=== PATIENT | female | born 2000 | race Caucasian/White ===

== ENCOUNTER 2018-01-19 22:44 | Day surgery (SDC) | payer BC, OTHER ==
[2018-01-19] MEDS ORDERED: Sodium Chloride 0.9% 1,000 ML IV ONE (22:59)
[2018-01-19] MEDS ORDERED: LORazepam 2 MG/ML Syringe IVPUSH ONE (23:05)
[2018-01-19] MEDS ORDERED: Ondansetron 4 MG/2 ML SDV IV ONE (23:05)
--- NOTE | 2018-01-19 23:06 | EDM.PDOC ---
"ED HPI GENERAL MEDICAL PROBLEM - General Chief Complaint: Abdominal Pain Stated Complaint: SEVERE CRAMPING AND CHEST PAIN Time Seen by Provider: 01/19/18 22:50 Source of Information: Reports: Patient, Family History Limitations: Reports: No Limitations - History of Present Illness INITIAL COMMENTS - FREE TEXT/NARRATIVE: Karie with mother report of vomiting, abdominal pain. Pain started this am then ate at [employer], vomiting after. Mom reports severe abdominal pain usual with menses. Initially unsure of LMP then later determined around 12/30. Ibuprofen and pamprin earlier this inderjit. Patient shaking and hyperventilating on arrival. mom noted that roommates said she kept passing out this inderjit. Patient reporting pain epigastric to lower. Middle Abdominal Pain Score (Numeric/FACES): 10 - Related Data Allergies Allergy/AdvReac Type Severity Reaction Status Date / Time No Known Allergies Allergy Verified 01/19/18 23:00 ED ROS GENERAL - Review of Systems Review Of Systems: ROS reveals no pertinent complaints other than HPI. ED EXAM, GI/ABD - Physical Exam Exam: See Below Exam Limited By: No Limitations General Appearance: Alert, Anxious Ears: Normal External Exam Throat/Mouth: Normal Lips Head: Atraumatic, Normocephalic Neck: Normal Inspection, Full Range of Motion Respiratory/Chest: No Respiratory Distress, Lungs Clear, Normal Breath Sounds Cardiovascular: Normal Peripheral Pulses, Regular Rate, Rhythm GI/Abdominal Exam: Normal Bowel Sounds, Soft, No Distention, Guarding, Tender. No: Distended Back Exam: Normal Inspection Extremities: Normal Inspection Neurological: Alert, Oriented Psychiatric: Anxious (hyperventilating, tremors, carppedal spasms) Skin Exam: Warm, Dry, Intact, Pallor Course - Vital Signs Last Recorded V/S: Last Vital Signs Temp 99.0 F 01/20/18 01:06 Pulse 77 01/20/18 01:06 Resp 18 01/20/18 01:06 BP 130/76 01/20/18 01:06 Pulse Ox 100 01/20/18 01:06 - Orders/Labs/Meds Orders: Active Orders 24 hr Category Date Time Status Verify Patient Consent Obtain [RC] ASDIRECTED Care 01/20/18 00:51 Active DRUG SCREEN URINE BIORAD [URCHEM] Stat Lab 01/20/18 00:19 Ordered UA W/MICROSCOPIC [URIN] Stat Lab 01/20/18 00:19 Ordered Sodium Chloride 0.9% [Normal Saline] 1,000 ml Med 01/20/18 01:00 Active IV ASDIRECTED Resuscitation Status Routine Resus Stat 01/20/18 00:50 Ordered Medication Orders Sodium Chloride (Normal Saline) 1,000 mls @ 125 mls/hr IV ASDIRECTED MILAGRO Last Admin: 01/20/18 01:15 Dose: 125 mls/hr Labs: Laboratory Tests 01/19/18 01/19/18 01/19/18 Range/Units 22:53 22:53 22:53 WBC 19.1 H (5.0-10.0) 10^3/uL RBC 4.31 (4.2-5.4) 10^6/uL Hgb 10.3 L (12.0-16.0) g/dL Hct 33.4 L (37.0-47.0) % MCV 77.5 L (80-100) fL MCH 23.9 L (27.0-34.0) pg MCHC 30.8 L (33.0-35.0) g/dL Plt Count 268 (150-450) 10^3/uL Neut % (Auto) 89.3 H (42.2-75.2) % Lymph % (Auto) 6.9 L (20.5-50.1) % Dyer % (Auto) 3.7 (2-8) % Eos % (Auto) 0.0 L (1.0-3.0) % Baso % (Auto) 0.1 (0.0-1.0) % Sodium 137 (135-145) mmol/L Potassium 3.6 (3.6-5.0) mmol/L Chloride 106 (101-111) mmol/L Carbon Dioxide 20.0 L (21.0-31.0) mmol/L Anion Gap 14.6 BUN 10 (7-18) mg/dL Creatinine 0.8 (0.6-1.3) mg/dL Est Cr Clr Drug Dosing 105.89 mL/min Estimated GFR (MDRD) > 60 BUN/Creatinine Ratio 12.50 Glucose 162 H (74-105) mg/dL POC Glucose (70-105) mg/dl Calcium 8.5 (8.4-10.2) mg/dl Total Bilirubin 0.5 (0.2-1.0) mg/dL AST 28 (10-42) IU/L ALT 13 (10-60) IU/L Alkaline Phosphatase 30 L (42-121) IU/L Total Protein 7.7 (6.7-8.2) g/dl Albumin 4.0 (3.2-5.5) g/dl Globulin 3.7 Albumin/Globulin Ratio 1.08 HCG, Qual Negative Urine Color (YELLOW) Urine Appearance (CLEAR) Urine pH (5.0-9.0) Ur Specific [place] (1.005-1.030) Urine Protein (NEGATIVE) Urine Glucose (UA) (NEGATIVE) Urine Ketones (NEGATIVE) Urine Occult Blood (NEGATIVE) Urine Nitrite (NEGATIVE) Urine Bilirubin (NEGATIVE) Urine Urobilinogen (0.2-1.0) mg/dL Ur Leukocyte Esterase (NEGATIVE) Urine RBC /HPF Urine WBC (0-5/HPF) /HPF Ur Epithelial Cells /HPF Amorphous Sediment (0/HPF) /HPF Urine Bacteria (0-FEW/HPF) /HPF Urine Mucus /LPF Urine Opiates Screen (NEGATIVE) Ur Oxycodone Screen (NEGATIVE) Urine Methadone Screen (NEGATIVE) Ur Barbiturates Screen (NEGATIVE) U Tricyclic Antidepress (NEGATIVE) Ur Phencyclidine Scrn (NEGATIVE) Ur Amphetamine Screen (NEGATIVE) U Methamphetamines Scrn (NEGATIVE) Urine MDMA Screen (NEGATIVE) U Benzodiazepines Scrn (NEGATIVE) Urine Cocaine Screen (NEGATIVE) U Marijuana (THC) Screen (NEGATIVE) 01/19/18 01/20/18 01/20/18 Range/Units 22:58 00:19 00:19 WBC (5.0-10.0) 10^3/uL RBC (4.2-5.4) 10^6/uL Hgb (12.0-16.0) g/dL Hct (37.0-47.0) % MCV (80-100) fL MCH (27.0-34.0) pg MCHC (33.0-35.0) g/dL Plt Count (150-450) 10^3/uL Neut % (Auto) (42.2-75.2) % Lymph % (Auto) (20.5-50.1) % Dyer % (Auto) (2-8) % Eos % (Auto) (1.0-3.0) % Baso % (Auto) (0.0-1.0) % Sodium (135-145) mmol/L Potassium (3.6-5.0) mmol/L Chloride (101-111) mmol/L Carbon Dioxide (21.0-31.0) mmol/L Anion Gap BUN (7-18) mg/dL Creatinine (0.6-1.3) mg/dL Est Cr Clr Drug Dosing mL/min Estimated GFR (MDRD) BUN/Creatinine Ratio Glucose (74-105) mg/dL POC Glucose 169 H (70-105) mg/dl Calcium (8.4-10.2) mg/dl Total Bilirubin (0.2-1.0) mg/dL AST (10-42) IU/L ALT (10-60) IU/L Alkaline Phosphatase (42-121) IU/L Total Protein (6.7-8.2) g/dl Albumin (3.2-5.5) g/dl Globulin Albumin/Globulin Ratio HCG, Qual Urine Color Yellow (YELLOW) Urine Appearance Slightly cloudy (CLEAR) Urine pH 6.5 (5.0-9.0) Ur Specific [place] 1.025 (1.005-1.030) Urine Protein Negative (NEGATIVE) Urine Glucose (UA) 100 H (NEGATIVE) Urine Ketones 40 H (NEGATIVE) Urine Occult Blood Negative (NEGATIVE) Urine Nitrite Negative (NEGATIVE) Urine Bilirubin Negative (NEGATIVE) Urine Urobilinogen 0.2 (0.2-1.0) mg/dL Ur Leukocyte Esterase Negative (NEGATIVE) Urine RBC 0-5 /HPF Urine WBC 5-10 H (0-5/HPF) /HPF Ur Epithelial Cells Few /HPF Amorphous Sediment Few (0/HPF) /HPF Urine Bacteria Few (0-FEW/HPF) /HPF Urine Mucus Rare /LPF Urine Opiates Screen Negative (NEGATIVE) Ur Oxycodone Screen Negative (NEGATIVE) Urine Methadone Screen Negative (NEGATIVE) Ur Barbiturates Screen Negative (NEGATIVE) U Tricyclic Antidepress Negative (NEGATIVE) Ur Phencyclidine Scrn Negative (NEGATIVE) Ur Amphetamine Screen Negative (NEGATIVE) U Methamphetamines Scrn Negative (NEGATIVE) Urine MDMA Screen Negative (NEGATIVE) U Benzodiazepines Scrn Negative (NEGATIVE) Urine Cocaine Screen Negative (NEGATIVE) U Marijuana (THC) Screen Negative (NEGATIVE) Meds: Medications Generic Name Dose Route Start Last Admin Trade Name Freq PRN Reason Stop Dose Admin Sodium Chloride 1,000 mls @ 125 mls/hr 01/20/18 01:00 01/20/18 01:15 Normal Saline IV 125 mls/hr ASDIRECTED MILAGRO Administration Discontinued Medications Generic Name Dose Route Start Last Admin Trade Name Tamiko PRN Reason Stop Dose Admin Fentanyl 25 mcg 01/19/18 23:12 01/19/18 23:16 Sublimaze IVPUSH 01/19/18 23:13 25 mcg ONETIME ONE Administration Sodium Chloride 1,000 mls @ 999 mls/hr 01/19/18 22:59 01/19/18 23:01 Normal Saline IV 01/19/18 23:59 999 mls/hr .BOLUS ONE Administration Iopamidol 75 ml 01/19/18 23:43 01/19/18 23:55 Isovue-300 (61%) IVPUSH 01/19/18 23:44 75 ml ONETIME ONE Administration Lorazepam 1 mg 01/19/18 23:05 01/19/18 23:12 Ativan IVPUSH 01/19/18 23:06 1 mg ONETIME ONE Administration Morphine Sulfate 2 mg 01/20/18 00:54 Morphine IVPUSH 01/20/18 04:00 Q2H PRN Abdominal Pain Ondansetron HCl 4 mg 01/19/18 23:05 01/19/18 23:20 Zofran IV 01/19/18 23:06 4 mg ONETIME ONE Administration - Radiology Interpretation Free Text/Narrative:: Name: JAYLENE YEN Age: 17Years F Date: 01/19/2018 SSN: -- : 2000 Study: CT ABDOMEN/PELVIS W Requesting Physician: TASHIA TAPIA Images: [id number] Addl Studies: Provided Clinical History: Contrast: With Contrast Medium: [id number] Contrast Amount: 75 mL Contrast Method: left wrist Page 1 of 2 Addendum created by Kalyan Xie MD on 01/20/2018 12:37 AM Central Time ([place] & [place]) [facility] CONTINUOUS PROCESS TASHIA TAPIA had already received the report at time of phone call on 2017 12:37 AM CDT and had no further questions. Initial Report created on 01/20/2018 12:32 AM Central Time ([place] & [place]) EXAM: CT Abdomen and Pelvis With Intravenous Contrast CLINICAL HISTORY: 17 years old, female; Signs and symptoms; Vomiting and other: Pain--wbc [id number] TECHNIQUE: Axial computed tomography images of the abdomen and pelvis with intravenous contrast. All CT scans at this facility use at least one of these dose optimization techniques: automated exposure control; mA and/or kV adjustment per patient size (includes targeted exams where dose is matched to clinical indication); or iterative reconstruction. Coronal and sagittal reformatted images were created and reviewed. CONTRAST: 75 mL of [id number] administered intravenously. COMPARISON: No relevant prior studies available. FINDINGS: Lung bases: Unremarkable. No mass. No consolidation. ABDOMEN: JAYLENE YEN | Final Radiology Report CONFIDENTIALITY STATEMENT This report is intended only for use by the referring physician, and only in accordance with law. If you received this in error, call [phone]. Page 2 of 2 Liver: Unremarkable. No mass. Gallbladder and bile ducts: Unremarkable. No calcified stones. No ductal dilation. Pancreas: Unremarkable. No mass. No ductal dilation. Spleen: Unremarkable. No splenomegaly. Adrenals: Unremarkable. No mass. Kidneys and ureters: Unremarkable. No solid mass. No hydronephrosis. Stomach and bowel: Unremarkable. No obstruction. No mucosal thickening. PELVIS: Appendix: The appendix is thickened measuring up to 11 mm with thickened wall and periappendiceal inflammatory fat stranding. Bladder: Unremarkable. No mass. Reproductive: Unremarkable as visualized. ABDOMEN and PELVIS: Intraperitoneal space: See above. No focal fluid collections. No free air. Bones/joints: No acute fracture. No dislocation. Soft tissues: Unremarkable. Vasculature: Unremarkable. No abdominal aortic aneurysm. Lymph nodes: Unremarkable. No enlarged lymph nodes. IMPRESSION: Acute appendicitis. No perforation or abscess. Thank you for allowing us to participate in the care of your patient. Dictated and Authenticated by: Kalyan Xie MD 01/20/2018 12:32 AM Central Time ([place] & [place] - Re-Assessments/Exams Free Text/Narrative Re-Assessment/Exam: 01/20/18 06:03 Dr Samson here to evaluate patient. Departure - Departure Time of Disposition: 00:40 Disposition: Refer to Observation Condition: Good Clinical Impression: Abdominal pain Qualifiers: Abdominal location: generalized Qualified Code(s): R10.84 - Generalized abdominal pain - Discharge Information *PRESCRIPTION DRUG MONITORING PROGRAM REVIEWED*: No - My Orders Last 24 Hours: My Active Orders 01/20/18 00:19 DRUG SCREEN URINE BIORAD [URCHEM] Stat UA W/MICROSCOPIC [URIN] Stat - Assessment/Plan Last 24 Hours: My Active Orders 01/20/18 00:19 DRUG SCREEN URINE BIORAD [URCHEM] Stat UA W/MICROSCOPIC [URIN] Stat"
[2018-01-19] MEDS ORDERED: fentaNYL 100 MCG/2 ML SDV IVPUSH ONE (23:12)
[2018-01-19 23:20] LABS: ANION GAP 14.6; CHLORIDE,CL 106 mmol/L (101-111); SODIUM,NA 137 mmol/L (135-145)
[2018-01-19] MEDS ORDERED: Iopamidol 612 MG/ML 75 ML Bottle IVPUSH ONE (23:43)
[2018-01-20] MEDS ORDERED: Morphine 2 MG/ML Syringe IVPUSH PRN ×2 (00:54→10:44)
[2018-01-20] MEDS ORDERED: Sodium Chloride 0.9% 1,000 ML IV SCH (01:00)
--- NOTE | 2018-01-20 01:24 | HP ---
INTRODUCTION: This 17-year-old female, who has had a 12-hour history of diffuse abdominal pain. She states she got sick after she ate lunch consisting a pizza. She kind of thought she just had stomach cramps and by around dinner time on 01/19, she began having more in the way of pain and was concerned that something was not quite right. She presented to the emergency room later on and was evaluated there. She does not have any fever. She has had several episodes of vomiting. She is somewhat hyperventilating and not quite coherent enough to give a very good story. PAST MEDICAL HISTORY: ALLERGIES: The patient has no allergies. CURRENT MEDICATIONS: None. PAST SURGICAL HISTORY: None. FAMILY HISTORY AND SOCIAL HISTORY: The patient is a student here in [place] at [employer]. She is studying sign language. She is single. According to her mother, she does not use alcohol and does not smoke. REVIEW OF SYSTEMS: Negative for all systems. PHYSICAL EXAMINATION: HEENT: Normal. Chest: Lungs are clear bilaterally. Heart: Normal sinus rhythm. Abdomen: Somewhat tender throughout. I cannot elicit a specific area that is more tender than any other. The patient states that she feels like her right side is more tender. Back: Normal. Extremities: Have good range of motion. Neurologic: Grossly intact, however, the patient has been medicated with fentanyl and Ativan and really is quite somnolent. I really do not get a very good story from the patient at all related to this. LABORATORY WORK: Shows an elevated white blood cell count to 19,000. I had recommended a CT scan since this patient is a little difficult to exam. This was read as acute appendicitis. ASSESSMENT: Possible acute appendicitis. PLAN: This patient only has had a 12-hour history of abdominal pain. Even though the radiologist reads this as appendicitis, there are several things that do not quite fit. She has more in the way of diffuse abdominal pain and not localized, and the patient right now is sedated and I do not get a very good story from her. My plan, I am going to admit this patient for observation for tonight and re-examine her in the morning if her pain medication wears off after 4:00 this morning and I examine her and feel like there is more localized tenderness or she is more consistent with acute appendicitis, we will still be not at the 24-hour time period. I discussed the risks, benefits, and expected outcomes with the mother of laparoscopic appendectomy, so the plan now is to admit her for hydration and observation. [facility] /[id number]
[2018-01-20] MEDS ORDERED: Sodium Chloride 0.9% 100 ML ONE (09:24)
[2018-01-20] MEDS ORDERED: cefTRIAXone 1 GM in Sodium Chloride 0.9% 100 ML IV ONE (09:46)
[2018-01-20] MEDS ORDERED: ceFAZolin 1 GM in Premix Bag 1 BAG IV ONE (09:46)
[2018-01-20] MEDS ORDERED: Ondansetron 4 MG/2 ML SDV IVPUSH PRN (10:44)
[2018-01-20] MEDS ORDERED: Dextrose 5%-Lactated Ringers 1,000 ML IV SCH (10:45)
--- NOTE | 2018-01-20 13:17 | OR ---
DATE: 01/20/2018 PREOPERATIVE DIAGNOSIS: Acute appendicitis. POSTOPERATIVE DIAGNOSIS: Acute appendicitis. PROCEDURES: Laparoscopic appendectomy. ANESTHESIA: General. ESTIMATED BLOOD LOSS: Minimum. SPECIMEN: Appendix. OPERATIVE FINDINGS: Acute appendicitis. INDICATION FOR PROCEDURE: This 17-year-old female who has had a day long history of abdominal pain and now localized in the right lower quadrant. She has an elevated white blood cell count to 19,[address] scan that shows acute appendicitis. PROCEDURE IN DETAIL: After adequate preparation, the infraumbilical Veress needle was placed and the abdomen was insufflated. Three trocars were placed in the midline under direct vision. The examination of the abdomen showed acute appendicitis. The appendix was moderately swollen. There was no exudate or evidence of perforation, however. No abscess formation and no purulent fluid. 45-mm stapling device was used to amputate the appendix at the base of the cecum and then another firing of the stapler to divide the appendiceal mesentery. Examination the rest of the abdomen was normal. Both tubes and ovaries on the right and left side are normal, no evidence of cyst. Liver and gallbladder appeared to be normal. No intraabdominal adhesions and no hernias. The abdomen was desufflated, trocars removed, and the patient taken to recovery room. [facility] /[id number]
[2018-01-20] MEDS ORDERED: Propofol 200 MG/20 ML SDV IV ONE (16:04)
[2018-01-20] MEDS ORDERED: Glycopyrrolate 0.2 MG/ML 2 ML SDV IV ONE (16:04)
[2018-01-20] MEDS ORDERED: Midazolam 1 MG/ML 2 ML SDV IV ONE (16:04)
[2018-01-20] MEDS ORDERED: Neostigmine Methylsulfate 10 MG/10 ML MDV IV ONE (16:04)
[2018-01-20] MEDS ORDERED: Rocuronium 50 MG/5 ML Vial IV ONE (16:04)
[2018-01-20] MEDS ORDERED: Dexamethasone 4 MG/ML SDV IV ONE (16:04)
[2018-01-20] MEDS ORDERED: Lidocaine 2% 20 ML MDV INJECT ONE (16:04)
[2018-01-20] MEDS ORDERED: Ondansetron 4 MG/2 ML SDV IV ONE (16:04)
[2018-01-20] MEDS ORDERED: fentaNYL 100 MCG/2 ML SDV IV ONE (16:04)
[2018-01-20] MEDS ORDERED: Ketorolac 30 MG/ML SDV IVPUSH ONE (16:04)
[2018-01-20] MEDS: Acetaminophen/HYDROcodone 325-10 MG Tab PO PRN ×2 (16:36→21:47)
[2018-01-21] MEDS: Acetaminophen/HYDROcodone 325-10 MG Tab PO PRN ×2 (02:01→06:19)
--- NOTE | 2018-01-21 08:40 | PCM.SN ---
- Free Text/Narrative Note: Better today. Afebrile. Wounds clean and dry. PO adequate. No N&V. Able to ambulate without difficulty. Can discharge today. Percocet 5/325 (#10) given for pain. No FU needed. Activity as tolerated. Dr. Samson
--- NOTE | 2018-01-21 10:00 | DISCH ---
ADMITTING DIAGNOSIS: Acute appendicitis. DISCHARGE DIAGNOSIS: Acute appendicitis. PROCEDURE PERFORMED: Laparoscopic appendectomy. INTRODUCTION: This 17-year-old female presents to the emergency room with diffuse abdominal pain but mostly located maximally in the right lower quadrant. CT scan showed appendicitis. She had an elevated white blood cell count of 19,000. PHYSICAL EXAMINATION: Otherwise, normal. Chest: Clear. Abdomen: Tender in the right lower quadrant. General: The patient was somewhat anxious and a little difficult to get a complete story out of her after she had been sedated for her discomfort. PAST MEDICAL HISTORY: Otherwise, not contributory. HOSPITAL COURSE: On 01/20/2018, she underwent a laparoscopic appendectomy. She did indeed have acute appendicitis. This was nonperforated. No other intraabdominal abnormalities were noted. Postoperatively, she was quite somnolent, and pain was somewhat difficult to control that day. By the next day, she had improved some and was able to tolerate some clear liquids. She did ambulate. Her wounds were clear on the morning of 01/21/2018, and she felt much better. She will be discharged and followed in the Surgery Clinic as needed. Percocet tablets were given for pain. She may have unrestricted activity. [facility] /[id number]
== END 2018-01-21 11:00 | disposition home or self-care (01) ==
LOC: DL.ED 22:44 → DL.MS 01-20 00:49 → UNDOADMOB 01-20 00:53 → DL.MS 01-20 00:56 → INTOOBSV 01-20 00:56 → DL.SDS 01-20 00:56 → OBSVTOIN 01-20 00:56 → UNDOADMOB 01-20 00:56 → DL.SDS 01-21 11:00 → UNDODISIN 01-21 11:00
PROVIDERS: ATTEND Surgery
DX: K35.80 Unspecified acute appendicitis (principal)
CPT/HCPCS: 36415; 44970; 74177; 80053; 80305; 81001; 82962; 84703; 85025; 96361; 96374; 96375; 99285; A9270; J0690; J0696; J1100; J1885; J2060; J2250; J2405; J2704; J2710; J3010; J3490; J7030; J7042; J7050; J7120; Q9967